=== PATIENT | female | born 1965 | race Caucasian/White ===

== ENCOUNTER 2021-08-12 11:32 | Outpatient (RCR) | payer OTHER, SELFPAY ==
[2021-08-12] MEDS: FAMOTIDINE 20 MG TABLET PO (15:52)
[2021-08-12] MEDS: diphenhydrAMINE HCl CAP 25 MG CAPSULE PO (15:52)
[2021-08-12] MEDS: ACETAMINOPHEN 325 MG TABLET 650 MG PO (15:52)
[2021-08-12 15:54] VITALS: BP 133/78; PULSE 82; RESP 20; TEMP 37.2; O2SAT 98
[2021-08-12 16:58] VITALS: BP 140/72
== END 2021-08-12 17:00 ==
LOC: AMCINF 11:32
PROVIDERS: PCP Nurse Practitioner Family; Visit Provider Internal Medicine Hematology & Oncology
DX: U07.1 COVID-19 (principal); I10 Essential (primary) hypertension
CPT/HCPCS: A9270; M0243; Q0244

== ENCOUNTER 2022-04-15 10:16 | Emergency (ER) | payer BC, SELFPAY ==
[2022-04-15 10:20] VITALS: BP 134/73; PULSE 64; RESP 18; TEMP 36.6; O2SAT 99
[2022-04-15 10:30] VITALS: PULSE 64; RESP 18; TEMP 36.6; O2SAT 99
--- NOTE | 2022-04-15 10:32 | ED.HA ---
HPI - Headache General Chief Complaint: Headache Stated Complaint: headache, nausea Time Seen by Provider: 04/15/22 10:35 Source: patient, RN notes reviewed and old records reviewed Mode of arrival: ambulatory Limitations: no limitations History of Present Illness HPI Narrative: 56 year old female who presents to [facility] care with complaints of headache behind her eyes and frontal region associated with some nausea no vomiting since yesterday at 0730. Patient reports no dizziness no ear discomfort denies any nasal congestion no cough no fever reports past history of migraines but has not been bothered by them for some time. Patient reports she has been taking Tylenol, and Aleve, with no improvement in her symptoms. Patient states she has been COVID vaccinated no booster and has not had flu shot. Patient reports that she did take a home COVID test which was negative. Patient reports that she is going thru menopause. MD elicited complaint: headache Pertinent past history: migraines and hypertension Onset (ago): day(s) (day 2 of symptoms) Time: 07:30 Pain scale (0-10): 8 Treatments prior to arrival: acetaminophen and other (Aleve) Related Data Home Medications Medication Instructions Recorded Confirmed amlodipine 10 mg tablet 10 mg PO DAILY 04/15/22 04/15/22 atorvastatin 40 mg tablet 40 mg PO DAILY 04/15/22 04/15/22 buspirone 10 mg tablet 10 mg PO DAILY 04/15/22 04/15/22 Allergies Allergy/AdvReac Type Severity Reaction Status Date / Time valsartan Allergy Mild SOB Verified 04/15/22 10:28 FERMIN Inhibitors Allergy Unknown nausea Verified 04/15/22 10:28 lisinopril Allergy Unknown SOB and Verified 04/15/22 10:28 weakness Review of Systems Review of Systems: CONSTITUTIONAL: Denies fever, chills, or sweats. EYES: Denies visual changes, redness, or discharge. ENT: Denies rhinorrhea, congestion, sore throat, or otalgia. CARDIOVASCULAR: Denies chest pain, palpitations, or edema. RESPIRATORY: Denies cough or dyspnea. GASTROINTESTINAL: Denies abdominal pain,positive for some nausea, no vomiting, or diarrhea. GENITOURINARY: Denies dysuria or hematuria. SKIN: Denies rash or itching. MUSCULOSKELETAL: Denies back pain, joint pain, or myalgia. NEUROLOGIC: Positive for headache,no numbness, or weakness. PSYCHIATRIC: Positive for anxiety or depression. All systems reviewed & are unremarkable except as noted in HPI and below PMFSH Past Medical History Medical History (Updated 04/17/22 @ 08:28 by Winnie Alvarado NP) Adenomatous colon polyp Constipation Family history of colon cancer GERD (gastroesophageal reflux disease) HLD (hyperlipidemia) HTN (hypertension) Surgical History Surgical History (Updated 04/17/22 @ 08:28 by Winnie Alvarado NP) Hx of cholecystectomy Family History Family History Sibling Diabetes mellitus Carcinoma of colon Mother Family history of coronary artery disease Sibling Family history of diabetes mellitus in first degree relative Carcinoma of colon Family history of heart disease in male family member before age 55 Patient's sister is in good health Father Family history of cardiovascular disease Family history of heart disease in male family member before age 55 Patient's father is in good health Mother Family history of lupus erythematosus Family history of heart disease in male family member before age 55 Patient's mother is in good health Grandparent Cerebrovascular accident Social History Social History Smoking status: Never smoker Second hand tobacco smoke exposure: No Alcohol intake: never Substance use: never Substance use type: does not use Gender identity (if verbalized by the patient): Female Sexual Orientation (if Verbalized by the Patient): Straight or Heterosexual Comments At time of signature, agree with nursing past medical, surgical, soci
[2022-04-15] MEDS: ONDANSETRON HCL ODT 4 MG TABLET SUBLINGUAL (10:57)
[2022-04-15] MEDS: KETOROLAC (*BKC) 60 MG/2 ML VIAL IM (10:57)
== END 2022-04-15 11:47 | disposition home or self-care (01) ==
PROVIDERS: Emergency Provider Registered Nurse; PCP Family Medicine
DX: G43.909 Migraine, unspecified, not intractable, without status migrainosus (principal); K21.9 Gastro-esophageal reflux disease without esophagitis; E78.5 Hyperlipidemia, unspecified; I10 Essential (primary) hypertension
CPT/HCPCS: 96372; 99213; A9270; G0463; J1885

== ENCOUNTER 2022-12-02 08:04 | Emergency (ER) | payer BC, SELFPAY ==
--- NOTE | 2022-12-02 08:09 | ED.URI ---
HPI - URI/Sore Throat General Chief Complaint: Upper Respiratory Infection Stated Complaint: Sore Throat/Congestion Time Seen by Provider: 12/02/22 08:09 Source: patient and RN notes reviewed History of Present Illness HPI Narrative: Patient is a 56-year-old female who presents to urgent care with complaints of sore throat, congestion and cough since Thursday. Patient states that she had a low-grade fever once and took Aleve. Patient is not taking anything [id number] for her symptoms. Denies any ill exposures, nausea or vomiting. Denies any shortness of breath. No other acute complaints. No acute distress noted. Patient aware of the plan of care. Some parts of this dictation were generated by voice recognition software and may contain typographical and/or grammatical inaccuracies. Related Data Home Medications Medication Instructions Recorded Confirmed atorvastatin 40 mg tablet 40 mg PO DAILY 04/15/22 12/02/22 Allergies Allergy/AdvReac Type Severity Reaction Status Date / Time valsartan Allergy Mild SOB Verified 12/02/22 08:23 FERMIN Inhibitors Allergy Unknown nausea Verified 12/02/22 08:23 lisinopril Allergy Unknown SOB and Verified 12/02/22 08:23 weakness Review of Systems Review of Systems: CONSTITUTIONAL: Denies fever, chills, or sweats. EYES: Denies visual changes, redness, or discharge. ENT: Reports nasal congestion, rhinorrhea and postnasal drainage with sore throat CARDIOVASCULAR: Denies chest pain, palpitations, or edema. RESPIRATORY: Reports of cough without dyspnea GASTROINTESTINAL: Denies abdominal pain, nausea, vomiting, or diarrhea. GENITOURINARY: Denies dysuria or hematuria. SKIN: Denies rash or itching. MUSCULOSKELETAL: Denies back pain, joint pain, or myalgia. NEUROLOGIC: Denies headache, numbness, or weakness. All other systems reviewed are negative, except as documented in HPI. [facility] Past Medical History Medical History Adenomatous colon polyp Constipation Family history of colon cancer GERD (gastroesophageal reflux disease) HLD (hyperlipidemia) HTN (hypertension) Surgical History Surgical History Hx of cholecystectomy Family History Family History Sibling Diabetes mellitus Carcinoma of colon Mother Family history of coronary artery disease Sibling Family history of diabetes mellitus in first degree relative Carcinoma of colon Family history of heart disease in male family member before age 55 Patient's sister is in good health Father Family history of cardiovascular disease Family history of heart disease in male family member before age 55 Patient's father is in good health Mother Family history of lupus erythematosus Family history of heart disease in male family member before age 55 Patient's mother is in good health Grandparent Cerebrovascular accident Social History Social History Smoking status: Never smoker Second hand tobacco smoke exposure: No Alcohol intake: never Substance use: never Substance use type: does not use Living arrangements: with family Occupation/Education: occupation Gender identity (if verbalized by the patient): Female Sexual Orientation (if Verbalized by the Patient): Straight or Heterosexual Comments At the time of my signature, I reviewed and agree with the nursing past medical, surgical, social, and family history. There is no relevant family history pertinent to the patient complaint. Exam Narrative: GENERAL: This is a well-nourished, well-developed patient, in no apparent distress. HEAD: normocephalic, atraumatic. EYES: PERRL. Sclera clear/white. Vision is grossly intact. EARS: External ears normal, auditory canals clear and without drainage, TMs normal without perfora
[2022-12-02 08:14] VITALS: BP 125/80; PULSE 77; RESP 16; TEMP 36.9; O2SAT 99
== END 2022-12-02 08:40 | disposition home or self-care (01) ==
PROVIDERS: Emergency Provider Nurse Practitioner Family; PCP Family Medicine
DX: J02.9 Acute pharyngitis, unspecified (principal); K21.9 Gastro-esophageal reflux disease without esophagitis; E78.5 Hyperlipidemia, unspecified; I10 Essential (primary) hypertension
CPT/HCPCS: 87081; 87880; 99213; G0463

== ENCOUNTER → 2023-01-13 15:01 | Outpatient (CLI) | payer BC, SELFPAY ==
--- NOTE | ~2023-01-13 | XR_ITS ---
XR hand BI arthritis min 3V DATE: 01/13/2023 15:53 INDICATION: Bilateral hand pain TECHNIQUE: 4 views of each hand COMPARISON: None FINDINGS: There is polyarticular osteophytosis, involving the first carpometacarpal joints and distal interphalangeal joints primarily. No fracture or dislocation, periosteal reaction or bone destruction is detected. No erosive change or chondrocalcinosis. IMPRESSION: Polyarticular osteoarthritis involving primarily the first carpometacarpal and distal int erphalangeal joints Reviewed, dictated and finalized at location L. IMPRESSION: Polyarticular osteoarthritis involving primarily the first carpomet acarpal and distal interphalangeal joints
--- NOTE | ~2023-01-13 | XR_ITS ---
XR_KNEE1-2VRT_CR DATE: 01/13/2023 15:53 INDICATION: Right knee pain TECHNIQUE: Standing AP and lateral views COMPARISON: None FINDINGS: There is minimal periarticular spurring of the patella. There is moderate loss of medial compartment joint space height and mild periarticular spurring of th e medial femoral condyle. No fracture or dislocation or joint effusion. No radiopaque intra-articular loose body or l chondroca lcinosis. No periosteal reaction or bone destruction. IMPRESSION: Mild medial compartment and slight patellofemoral osteoarthritis Reviewed, dictated and finalized at [facility]. Reviewed, dictated and finalized at location [facility].
--- NOTE | ~2023-01-13 | XR_ITS ---
XR_[id number]_CR DATE: 01/13/2023 15:53 INDICATION: Left knee pain TECHNIQUE: Standing AP and lateral views COMPARISON: None FINDINGS: There is minimal particular spurring of the patella. There is moderately prominent loss of medial joint space height with mild periarticular spurring, primarily of the medial femoral condyle. No fracture or dislocation, radiopaque intra-articular loose body or, calcinosis is noted. No periost eal reaction or bone destruction. Assessment of joint effusion is somewhat limited due to obliquity of the lateral view. IMPRESSION: Moderate medial compartment and minimal patellofemoral compartment osteoarthritis Reviewed, dictated and finalized at [facility]. Reviewed, dictated and finalized at location L.
== END ==
PROVIDERS: PCP Family Medicine; Visit Provider Family Medicine
DX: M19.042 Primary osteoarthritis, left hand (principal); M19.041 Primary osteoarthritis, right hand; M19.072 Primary osteoarthritis, left ankle and foot; M19.071 Primary osteoarthritis, right ankle and foot
CPT/HCPCS: 73130; 73560

== ENCOUNTER 2023-10-15 00:38 | Day surgery (SDC) | payer BC, SELFPAY ==
[2023-09-17 10:01] VITALS: BMI 46.4
--- NOTE | 2023-10-13 10:35 | SUR.PREOP ---
Patient called regarding upcoming procedure. Unable to leave a message.
[2023-10-15 13:14] VITALS: BP 136/88; PULSE 87; RESP 20; TEMP 36.7; O2SAT 98; BMI 46.6
--- NOTE | 2023-10-15 13:16 | WPDANESEPPF ---
Anes - Initial Pre Proc Eval Procedure: Operation Date: 10/15/23 14:30 Proposed Procedures p Esophagogastroduodenoscopy & Screening Colonoscopy - Micheal Garcia MD Date/Time: 10/15/23 13:16 Surgeon: Micheal Gracia MD Pre Op Diagnosis: GERD,LLQpain,Neoplasm screening, Fam Hx cancer GI Patient Data Age: 57 Gender: F Height: 1.6 m Weight: 119 kg Allergies Allergy/AdvReac Type Severity Reaction Status Date / Time valsartan AdvReac Mild SOB Verified 10/15/23 13:13 FERMIN Inhibitors AdvReac Unknown nausea Verified 10/15/23 13:13 lisinopril AdvReac Unknown SOB and Verified 10/15/23 13:13 weakness Home Medications Medication Instructions Recorded Confirmed Type fluticasone propionate 50 2 spray intranasal DAILY #15.8 mL 12/02/22 09/17/23 Rx mcg/actuation nasal spray,suspension (Flonase Allergy Relief) amlodipine 10 mg tablet 10 mg PO DAILY #90 tabs 05/05/23 09/17/23 Rx benazepril 40 mg tablet 40 mg PO DAILY #90 tabs 05/05/23 09/17/23 Rx aspirin 81 mg capsule 81 mg DAILY 09/17/23 09/17/23 History buspirone 10 mg tablet 10 mg PO TID 09/17/23 09/17/23 History Patient hx anesthesia problems: none Family hx anesthesia problems: none Results Review: All pre-operative results and documents have been reviewed as part of the pre-operative evaluation. [facility] Past Medical History Medical History Adenomatous colon polyp Constipation Family history of colon cancer GERD (gastroesophageal reflux disease) HLD (hyperlipidemia) HTN (hypertension) Surgical History Surgical History Hx of cholecystectomy Family History Family History Sibling Diabetes mellitus Carcinoma of colon Mother Family history of coronary artery disease Sibling Family history of diabetes mellitus in first degree relative Carcinoma of colon Family history of heart disease in male family member before age 55 Patient's sister is in good health Father Family history of cardiovascular disease Family history of heart disease in male family member before age 55 Patient's father is in good health Mother Family history of lupus erythematosus Family history of heart disease in male family member before age 55 Patient's mother is in good health Grandparent Cerebrovascular accident Social History Social History Smoking status: Never smoker Second hand tobacco smoke exposure: No Alcohol intake: never Substance use: never Substance use type: does not use Living arrangements: with family Occupation/Education: occupation Gender identity (if verbalized by the patient): Female Sexual Orientation (if Verbalized by the Patient): Straight or Heterosexual Spiritual care concerns: No Anes - Eval Final PreProcedure Day of Procedure 10/15/23 13:16 Patient weight: morbidly obese Heart: regular rate and rhythm Lungs: clear to auscultation Airway: Mallampati scale class III Neurological: alert and oriented Last oral intake: >/= 8 hours ASA classification: III Emergent: no Anesthetic plan: proceed Anesthesia type and monitoring: general GIVS and standard monitoring Results Review: All pre-operative results and documents have been reviewed as part of the pre-operative evaluation. Informed Consent: The patient's anesthetic plan and its attendant risks and benefits were discussed with the patient/family/POA. Questions were solicited and answers provided to the satisfaction of the patient/family/POA.
[2023-10-15] MEDS: LACTATED RINGERS 1,000 ML 150 ML IV CONT (13:22)
--- NOTE | 2023-10-15 13:24 | PM.HPGS ---
History of Present Illness History of Present Illness Consent: Risks, benefits, and alternatives have been discussed and questions answered. Patient agrees to proceed with procedure. Chief complaint: GERD,LLQpain,Neoplasm screening, Fam Hx cancer GI Narrative: Elizabeth Sams is a 57 year old female with gerd on pepcid, also luq pain. Last colonoscopy 6 years ago and had polyps, sister with colon cancer. Review of Systems Constitutional: Constitutional: Denies headache(s) and Denies weakness Eyes: Eyes: Denies blurry vision ENT: Reports Normal hearing present, Denies headache(s) and Denies neck pain Cardiovascular: Cardiovascular: Denies chest pain and Denies dyspnea Respiratory: Respiratory: Denies dyspnea Gastrointestinal: Gastrointestinal: Reports no additional gastrointestinal complaints Genitourinary: Genitourinary: Denies dysuria Musculoskeletal: Musculoskeletal: Denies neck pain Integumentary/Breasts: Skin/Breast: Denies dry skin Neurologic: Reports Normal hearing present, Denies headache(s) and Denies weakness Psychiatric: Psychiatric: Denies anxiety Endocrine: Endocrine: Denies change in body appearance Hematologic/Lymphatic: Hematologic/Lymphatic: Denies easy bleeding Allergic/Immunologic: Allergic/Immunologic: Denies urticaria PMFSH Past Medical History Medical History Adenomatous colon polyp Constipation Family history of colon cancer GERD (gastroesophageal reflux disease) HLD (hyperlipidemia) HTN (hypertension) Surgical History Surgical History Hx of cholecystectomy Family History Family History Sibling Diabetes mellitus Carcinoma of colon Mother Family history of coronary artery disease Sibling Family history of diabetes mellitus in first degree relative Carcinoma of colon Family history of heart disease in male family member before age 55 Patient's sister is in good health Father Family history of cardiovascular disease Family history of heart disease in male family member before age 55 Patient's father is in good health Mother Family history of lupus erythematosus Family history of heart disease in male family member before age 55 Patient's mother is in good health Grandparent Cerebrovascular accident Social History Social History Smoking status: Never smoker Second hand tobacco smoke exposure: No Alcohol intake: never Substance use: never Substance use type: does not use Living arrangements: with family Occupation/Education: occupation Gender identity (if verbalized by the patient): Female Sexual Orientation (if Verbalized by the Patient): Straight or Heterosexual Spiritual care concerns: No Meds Home Medications and Allergies Home Medications Medication Instructions Recorded Confirmed Type fluticasone propionate 50 2 spray intranasal DAILY #15.8 mL 12/02/22 09/17/23 Rx mcg/actuation nasal spray,suspension (Flonase Allergy Relief) amlodipine 10 mg tablet 10 mg PO DAILY #90 tabs 05/05/23 09/17/23 Rx benazepril 40 mg tablet 40 mg PO DAILY #90 tabs 05/05/23 09/17/23 Rx aspirin 81 mg capsule 81 mg DAILY 09/17/23 09/17/23 History buspirone 10 mg tablet 10 mg PO TID 09/17/23 09/17/23 History Allergies Allergy/AdvReac Type Severity Reaction Status Date / Time valsartan AdvReac Mild SOB Verified 10/15/23 13:13 FERMIN Inhibitors AdvReac Unknown nausea Verified 10/15/23 13:13 lisinopril AdvReac Unknown SOB and Verified 10/15/23 13:13 weakness Vital Signs Vital Signs - 24 hr 10/15/23 13:14 Temperature 98.1 F Pulse Rate 87 Respiratory Rate 20 Blood Pressure 136/88 Pulse Oximetry 98 Oxygen Delivery Room Air Exam Const: General: comfortable and no acute distress HENMT: Face/Nose/Sinus: Nor
--- NOTE | 2023-10-15 13:43 | SUR.OPER ---
EGD START: 1333; END: 1336. COLONOSCOPY START: 1341; END: 1349.
[2023-10-15 13:54] VITALS: BP 114/78; PULSE 77; RESP 19; O2SAT 98
[2023-10-15 14:04] VITALS: BP 122/82; PULSE 74; RESP 24; O2SAT 100
[2023-10-15 14:14] VITALS: BP 115/75; PULSE 65; RESP 18; O2SAT 100
== END 2023-10-15 14:22 | disposition home or self-care (01) ==
PROVIDERS: PCP Family Medicine; Visit Provider Internal Medicine Gastroenterology
PROC: 0DJ08ZZ Inspection of Upper Intestinal Tract, Via Natural or Artificial Opening Endoscopic (ICD-10-PCS; CPT 43235; principal; 2023-10-15 14:30)
DX: Z12.11 Encounter for screening for malignant neoplasm of colon (principal); K64.8 Other hemorrhoids; K57.30 Diverticulosis of large intestine without perforation or abscess without bleeding; K44.9 Diaphragmatic hernia without obstruction or gangrene; K29.80 Duodenitis without bleeding; I10 Essential (primary) hypertension; E78.5 Hyperlipidemia, unspecified; K21.9 Gastro-esophageal reflux disease without esophagitis; E66.01 Morbid (severe) obesity due to excess calories; Z68.42 Body mass index [BMI] 45.0-49.9, adult; Z79.82 Long term (current) use of aspirin; Z90.49 Acquired absence of other specified parts of digestive tract; Z86.010 Personal history of colon polyps; Z80.0 Family history of malignant neoplasm of digestive organs; Z82.49 Family history of ischemic heart disease and other diseases of the circulatory system
CPT/HCPCS: 43239; 45378; 88305; J2001; J2704; J7120

== ENCOUNTER 2024-07-14 11:09 | Outpatient (CLI) | payer BC, SELFPAY ==
--- NOTE | ~2024-07-14 | XR_ITS ---
Clinical Indication: Cough PA and lateral views of the chest: Comparison: 05/21/2007 Findings: The lungs are clear, without evidence of focal consolidation or pleural effusion. Cardiome diastinal silhouette is within normal limits. Bones and soft tissues are unremarkable. Impression: Normal chest. Reviewed, dictated and finalized at [facility]. E BUILDER Impression: Normal chest.
== END 2024-07-14 11:10 | disposition home or self-care (01) ==
PROVIDERS: PCP Family Medicine; Visit Provider Physician Assistant Medical
DX: R05.9 Cough, unspecified (principal); R09.89 Other specified symptoms and signs involving the circulatory and respiratory systems
CPT/HCPCS: 71046

== ENCOUNTER 2024-11-23 09:54 | Outpatient (CLI) | payer OTHER, SELFPAY ==
--- NOTE | ~2024-11-23 | CT_ITS ---
CT of the Abdomen: Indication: Left upper quadrant Technique: 2.5 mm axial scans were obtained through the abdomen following intravenous administration of 100 cc of Omnipaque 350. Dose reduction technique was used on this scan by utilizing automated ex posure control and iterative reconstruction technique. The dose-length product (DLP) was 755.58 mGy-c m. Findings: Scans through the lung bases are unremarkable. The liver, spleen, pancreas, and adrenal glands are within normal limits. Cholecystectomy clips are p resent. 6 mm nonobstructing right renal stone present. 5 mm nonobstructing left renal stone present. No evidence of aortic aneurysm. No lymphadenopathy. Visualized bowel loops are unremarkable.. No ascites. Impression: Bilateral nonobstructing renal stones, as above. Reviewed, dictated and finalized at location M. Impression: Bilateral nonobstructing renal stones, as above.
[2024-11-23 10:13] LABS: Estimated Glomerular Filt Rate 57
== END 2024-11-23 09:55 | disposition home or self-care (01) ==
PROVIDERS: PCP Family Medicine; Visit Provider Physician Assistant Medical
DX: N20.0 Calculus of kidney (principal)
CPT/HCPCS: 74160; Q9967

== ENCOUNTER 2025-06-22 16:41 | Outpatient (CLI) | payer OTHER, SELFPAY ==
--- OUTSIDE RECORDS SUMMARY | 2023-05-21 06:47 | XMS_ITS | Encounter Summary ---
Author Organization [facility] Healthcare Address [address] [place] [address] Care Team Providers Care Primary Teacher Name Role Phone Durga Tomlinson MD Primary Care Provider Reason for Visit * Diagnostic Imaging (Routine) - Closed Specialty Diagnoses / Procedures Referred By Sachin glass Referred To Contact Diagnoses Left knee pain, unspecified chronicity Procedures XR Knee Left 1 or 2 Views Toro Talamantes NP [address] [place] [address] [address] [place] [address] Phone: tel: fax: Referral ID Status Reason Start Date Expiration Date Visits Re quested Visits Authorized [id number] Closed 05/21/2023 06/19/2024 1 1 Encounter Details Date Type Department Care Team (Late st Contact Info) Description 05/21/2023 7:47 AM CDT Hospital Encounter [facility] Orth[facility] Medicine [address] [place] [address] [address] [id number] Social History Tobacco Use Types Packs/Day Years Used Date Smoking Tobacco: Never Smokeless Tobacco: Never PHQ-2 Answer Date Recorded PHQ-2 Total Score (If total score is 3 or more points, staff should administer the PHQ-9) 0 11/19/2023 Personal Safety Answer Date Recorded Have you ever been in or are you currently in a harmful physical or emotional relationship or is someone making you feel afraid or unsafe? 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 Has the patient self-reported, presented with clinical signs of, or have a documented history of any of the following within the past 30 days? No 06/17/2024 10:02 AM Alexandria Brian RN * Question Answer Date of Assessment Author Is the patient being treated today because it is known or suspected that they prepared, started, or tried to end their life? No 06/17/2024 10:02 AM Alexandria Brian RN * Question Answer Date of Assessment Author 1. In the past month, have y ou wished you were or that you could go to sleep and not wake up? No 06/17/2024 10:02 AM Alexandria Brian RN 2. In the past month, have y ou actually had any thoughts of killing yourself? No 06/17/2024 10:02 AM Alexandria Brian RN 6. Have you ever done anything, started to do anything, or prepared to do anything to end your life? No 06/17/2024 10:02 AM Alexandria Brian RN * Suicide Risk Level Answer Date of Assessment Author No risk level 06/17/2024 10:02 AM Alexandria Brian RN * Self-Injurious Risk Level Answer Date of Assessment Author No risk level 06/17/2024 10:02 AM Alexandria Brian RN * Fall Risk Assessment Tool - MEDFRAT Question Answer Date of Assessment Author Prior Fall Event (Autopopulated from EMR) None found 06/17/2024 10:02 AM Alexandria Brian RN History of falling in last 3 months, including since admission 0 06/17/2024 10:02 AM Alexandria Brian RN Confusion or disorientation 0 06/17/2024 10:02 AM Alexandria Brian RN Intoxicated or sedated 0 4 10:02 AM Alexandria Brian RN Impaired gait 0 06/17/2024 10:02 AM Alexandria Brian RN Mobility assist device used 0 06/17/2024 10:02 AM Alexandria Brian RN Altered elimination 0 06/17/2024 1 0:02 AM Alexandria Brian RN Fall risk score: (1-2 low risk), (3-4 moderate risk), (5 or more high risk) 0 06/17/2024 10:02 AM Alexandria Brian RN Interventions - GENERAL USE as needed patient/family education 06/17/2024 10:02 AM Alexandria Brian RN * BP Location Answer Date of Assessment Author Right arm 09/06/2024 8:41 AM Estee Lind MA documented as of this encounter Mental Status * Question Answer Entry Date Author Neuro (WDL) WDL 06/17/2024 11:47 AM Christy Alfred RN documented in this encounter Plan of Treatment Not on file documented as of this encounter Procedures Procedure Name Priority Date/Time Associated Diagnosis Comments XR KNEE LEFT 1 OR 2 VIEWS Schedule Routine, Read Routine (OP Routine) 05/21/2023 12:55 PM CDT Left knee pain, unspecified chronicity documented in this encounter Results * XR Knee Left 1 or 2 Views (05/21/2023 12:55 PM CDT) Anatomical Region Laterality Modality Lower Extremities, Knee Left Digital Radiography Narrative 05/21/2023 12:55 PM CDT Weightbearing views of the left knee are reviewed and demonstrate no acute fractures or osseous changes. Mild to moderate medial and patellofemoral degenerative changes present with joint space narrowing, osteophyte formation, and subchondral sclerosis Toro Talamantes INSURANCE ADVISOR IMG XR PROCEDURES Final Result documented in this encounter Visit Diagnoses Not on filedocumented in this encounter Care Teams Primary Teacher Relationship Specialty Start Date End Date Durga Tomlinson MD [address] [facility] [address] [place] [address] PCP - General Family Medicine 04/29/21 11/18/23 documented as of this encounter
--- OUTSIDE RECORDS SUMMARY | 2025-06-22 16:43 | XMS_ITS | Clinical Summary ---
Author Organization [facility] Address [address] [place] [address] Care Team Providers Care Hide And Skin Colerer Name Role Phone Durga Tomlinson MD Primary Care Provider Allergies Active Allergy Reactions Criticality Noted Date Comments Omer Inhibitors Nausea only Low 04/29/2021 Lisinopril Shortness of breath High 04/29/2021 Prednisone Palpitations Low 04/29/2021 Valsartan Shortness of breath High 04/29/2021 Medications amLODIPine (NORVASC) 10 mg tablet Take 1 tablet (10 mg total) by mouth daily 04/16/2021 Active busPIRone (BUSPAR) 10 mg tabletIndication s:Generalized Anxiety Disorder Take 1 tablet (10 mg total) by mouth daily Active benazepriL (LOTENSIN) 40 mg tablet Take 1 tablet (40 mg total) by mouth daily Active aspirin 81 mg enteric coated tablet Take 1 tablet (81 mg total) by mouth daily Active benzonatate (TESSALON) 200 mg capsuleIndicatio ns:Lower respiratory infection Take 1 capsule (200 mg total) by mouth 3 (three) times a day as needed for cough 42 capsule 06/30/2024 Active atorvastatin (LIPITOR) 20 mg tablet Take 1 tablet (20 mg total) by mouth daily 90 tablet 3 09/06/2024 09/06/19 26 Active Active Problems Problem Noted Date Diagnosed Date Arthralgia 11/23/2023 Assessment & Plan (11/23/2023 7:46 PM CDT): Multiple arthralgias and joint aches. Also has joint swelling. Will recheck labs. Refer to rheumatology. Mixed hyperlipidemia 11/23/2023 Assessment & Plan (11/23/2023 7:46 PM CDT): Was taken off statin. Will recheck lipid panel. Continue to monitor Myalgia, multiple sites 11/23/2023 Anxiety 11/23/2023 Assessment & Plan (11/23/2023 7:48 PM CDT): Continue buspar. Has stopped sertraline. Feels irritability improved with stopping it, but depression has worsened. Will monitor and discuss if we need to replace it at next office visit Angina pectoris 03/27/2022 Overview (05/07/2022): Possibly due to stress and anxiety. No ischemia on Cardiolite 09 Dec 2016. Fixed anteroseptal defect on Cardiolite 17 May 2021. Normal LVEF on echo 22 November 2021. Normal cardiac catheterization on 04 April 2022 (RG). Assessment & Plan (09/06/2024 8:57 AM ELECTRICAL AND INSTRUMENTATION MECHANIC): We discussed cardiac catheterization result from 2-1/2 years ago. She has not really had any chest pain or shortness of breath with activities. She does have problems with the hip when walking. I advised her to cut back on the calorie intake and to do water exercises as she has been gaining some weight lately. Weight gain would not be good for the hip. Assessment & Plan (11/27/2022 3:05 PM CDT): She had some chest pressure 8 months ago leading to a normal cardiac catheterization. No more exertional chest pressure. Assessment & Plan (03/27/2022 2:35 PM CDT): Patient is still having mid chest pressure with/without exertion. She thinks it is getting more frequent and more severe. We discussed as he is already being treated for CAD with amlodipine, aspirin, metoprolol tartrate and atorvastatin. It might be best to find out for sure whether she has real CAD versus anxieties/stress. I recommended the gold standard which is a heart catheterization. She is agreeable. She would like to miss only 1 day, so we could try to schedule this for next week Thursday. Elevated LDL cholesterol level 03/27/2022 Overview (09/06/2024): LDL of 83 mg/dL on 09 Dec 2016. LDL of 135 mg/dL on 04 Jan 2021. LDL of 125 mg/dL on 11 October 2022. LDL of 83 mg/dL on 22 November 2022. LDL of 113 mg/dL on 20 November 2023. She was on Lipitor 40 mg p.o. q.d., but not on any anti lipid agent now. Assessment & Plan (09/06/2024 8:57 AM ELECTRICAL AND INSTRUMENTATION MECHANIC): We discussed LDL cholesterol goal of less than 100 mg/dL. I showed her that she was at goal when taking Lipitor. Apparently had some issues with Lipitor 40 mg in the past--she thought it might be her anxiety. We decided to compromise and I will have her take 20 mg of Lipitor daily. Another fasting lipid/liver panel in 2 months. Assessment & Plan (11/27/2022 3:04 PM CDT): Patient thinks that she has palpitations from the Lipitor. However, she has a very anxious lady and has had palpitations the past. 2 cardiac monitors, 2017 and 2018, did not show anything significant when she had palpitations. She will let me know if she needs another monitor and storage bin tender. At this time, she does not want a monitor. She will call me back in 2 weeks once symptoms are completely cleared, for possibly restarting Pravachol 20 mg p.o. q.p.m. to get the LDL closer to 100 mg/dL. Assessment & Plan (03/27/2022 2:35 PM CDT): Discussed LDL cholesterol goal of at least less than 100 mg/dL. Apparently never got a lipid panel after Lipitor was started last year. Patient agreeable to getting a lipid/liver panel now. Essential hypertension 04/29/2021 Assessment & Plan (11/23/2023 7:41 PM CDT): Stable/ Improved. Blood pressure is adequately controlled on benazepril (Lotensin) and amlodipine . We will not make any medication changes today. Will have her follow-up in 6 months for continued monitoring and management Morbid obesity with body mas s index (BMI) of 45.0 to 49.9 in adult Assessment & Plan (11/23/2023 7:42 PM CDT): BMI Follow-up includes: exercise counseling. Immunizations Immunization Administration Dates Next Due Influenza, Unspecified 08/10/2023(Deferr ed: Patient Refused),08/10/2022(Deferred: Patient Refused) Surgical History Surgery Date Site/Laterality Comments CHOLECYSTECTOMY TUBAL LIGATION Medical History Medical History Date Comments Constipation LUCIUS (generalized anxiety disorder) Major depressive disorder Depression Esophageal reflux Chronic kidney disease Family History Medical History Relation Name Comments Heart disease Father Coronary artery disease Mother Heart attack Mother Lupus Mother Stroke Mother Diabetes Sister 1 Colon cancer Sister 3 Relation Name Status Comments Father (Age 80) Mother Alive Sister 1 Alive Sister 2 Alive Sister 3 Alive Social History Tobacco Use Types Packs/Day Years Used Date Smoking Tobacco: Never Smokeless Tobacco: Never Tobacco Cessation:Counseling Given: Not Answered PHQ-2 Answer Date Recorded PHQ-2 Total Score [...] on file Legal Sex Female 11:59 PM ELECTRICAL AND INSTRUMENTATION MECHANIC Gender Identity Not on file Sexual Orientation Not on file Last Filed Vital Signs Vital Sign Reading Time Taken Comments Blood Pressure 138/89 09/06/2024 8:41 AM ELECTRICAL AND INSTRUMENTATION MECHANIC Pulse 87 09/06/2024 8:41 AM ELECTRICAL AND INSTRUMENTATION MECHANIC Temperature 36.8 C (98.2 F) 06/30/2024 11:36 AM ELECTRICAL AND INSTRUMENTATION MECHANIC Respiratory Rate 16 09/06/2024 8:41 AM ELECTRICAL AND INSTRUMENTATION MECHANIC Oxygen Saturation 97% 06/30/2024 11: 36 AM ELECTRICAL AND INSTRUMENTATION MECHANIC Inhaled Oxygen Concentration - - Weight 121.7 kg (268 lb 3.2 oz) 09/06/2024 8:41 AM ELECTRICAL AND INSTRUMENTATION MECHANIC Height 160 cm (5' 3) 09/06/2024 8:41 AM ELECTRICAL AND INSTRUMENTATION MECHANIC Body Mass Index 47.51 09/06/2024 8:41 AM ELECTRICAL AND INSTRUMENTATION MECHANIC Plan of Treatment Health Maintenance Due Date Last Done Comments Breast Cancer Screening-Mammogram 1965 Cervical Cancer Screening 1965 DTaP/Tdap/Td Vaccine (1 - Tdap) 12/23/1978 Hepatitis B Screening 12/23/1985 Regular Well Visit/Exam 18-64 12/23/1985 Pneumococcal vaccine <65 (1 of 2 - PCV) 12/23/1986 Zoster Vaccine (1 of 2) 12/23/2017 Depression Screening 11/18/2024 11/19/2023 Covid-19 Vaccine (2 - season) 04/10/202512/2020 Influenza Vaccine (#1) 2025 Colon Cancer Screening-Colonoscopy 12/12/20252015 Hepatitis C Screening Completed 11/20/2023 Medical Devices Implanted Type Area Virtualization Engineer Device Identifier Shelf Expiration Date Model / Serial / Lot [employer] Angio-Seal Vip 6fr Closere Device [id number] - [id number] Implanted:Qty: 1 on 04/04/2022 by Amanda Milligan MD at [facility] Other - see comments [employer] 02/06/2023 [id number] / / [id number] Procedures Procedure Name Priority Date/Time Associated Diagnosis Comments HEPATITIS C ANTIBODY Routine 11/20/2023 9:31 AM CDT COLONOSCOPY 12/13/2015 12:00 AM CDT from Last 3 Months or Most Recently Relevant to Health Maintenance Results * Hepatitis C antibody (11/20/2023 9:31 AM CDT) Hep C Ab NON-REACTI VE NON-REACT ROGER [facility] Comment: HCV antibody was non-reactive. There is no laboratory evidence of HCV infection. In most cases, no further action is required. However, if recent HCV exposure is suspected, a test for HCV RNA (test code 73190) is suggested. For additional information please refer to http://education.[employer]/faq/ZJH17s4 (This link is being provided for informational/ educational purposes only.) 11/20/2023 9:31 AM CDT 11/20/2023 9:40 AM CDT Narrative [facility] - 11/23/2023 4:26 PM CDT FASTING:YES FASTING: YES Tegan Bird NP LAB MICROBIOLOGY - GENERAL OR DERABLES Final Result [facility] [address] [place] [address] * COLONOSCOPY (12/13/2015 12:00 AM CDT) Anatomical Region Laterality Modality Other Narrative 12/13/2015 12:00 AM CDT Ordered by an unspecified provider. Procedure Note Provider, MD Fernanda - 12/13/2015 12:00 AM CDT PROCEDURE REPORT Patient: CARLOS ENRIQUE SAMS Account: [id number] Room No: : 1965 Patient Type: [facility] Attend.: Naveed Trejo M.D. Admit Date: 12/13/2015 Dict.: Naveed Trejo M.D. Disch. Date: 12/13/2015 Patient seen on 12/13/2015. REFERRED BY: Dr. Michele Sorto. PREVIOUS PROCEDURE: Colonoscopy with polyps removed. X-RAYS: None. HISTORY AND PHYSICAL EXAMINATION: The patient is a 49-year-old whitefemale with history of colonic polyps as well as family history of colorectalcancer. She returns now for repeat screening colonoscopy. Please note she hasno current complaints. Physical examination is that of a well-developed, well-nourished, whitefemale in no acute distress. She is nonicteric. Her lungs were clear. Herheart was regular. GI was soft and supple. Extremities showed no calf pain, cordsor edema. PREPROCEDURE DIAGNOSES: 1. Screening colonoscopy in a 49-year-old female. 2. History of colonic polyps. 3. Strong family history of colorectal cancer. PHYSICIAN: Dr. Trejo. INSTRUMENT USED: Olympus video endoscope. MEDICATIONS: Per anesthesia. FINDINGS: The colonoscope was introduced into the rectum, left lateral position and passed to the cecum. The patient tolerated the procedurewell. There were no complications. On withdrawal of the colonoscope, themucosa appeared normal with the normal vascular pattern. No polyps and no masseswere noted in the cecum, right, transverse, left, rectal sigmoid or rectum. Inthe rectum there was a small minute polypoid area that did not appearneoplastic in any way. It was simply picked up, cauterized and destroyed. Retroflexview of the internal anal area showed small to moderate internal hemorrhoidaltissue with several hemorrhoidal tags. Perianal exam showed no perianal diseaseand no rectal masses. COMPLICATIONS: None. POSTPROCEDURE DIAGNOSES: 1. Normal screening colonoscopy to cecum with a withdrawal time of 8minutes and 58 seconds. Preparation good. 2. History of colonic polyps. 3. Strong family history of colorectal cancer. POSTPROCEDURE ORDERS: 1. Postsedation instructions. 2. High fiber diet. 3. Repeat colon in 5 years. 4. Follow up with Dr. Michele Sorto. 5. *-*-* 6. 7. 1. Electronically Authenticated by: Naveed Trejo MD On 12/17/2015 05:32 AM CDT 1. 2. *-*-* 3. 4. 1. Naveed Trejo M.D. MA/elfego TD: 12/17/2015 02:10 CC: Dr. Michele Sorto us Historical Provider ENDOSCOPY PROCEDURES Holli l Result from Last 3 Months or Most Recently Relevant to Health Maintenance Insurance [employer] [facility] OPEN ACCESS Advance Directives For more information, please contact: [phone] * Full Code (Latest Code Status on File) Date Activated Date Inactivated Comments 04/04/2022 1:21 PM 04/07/2022 11:19 AM Care Teams Hide And Skin Colerer Relationship Specialty Start Date End Date Durga Tomlinson MD [address] [facility] [address] [place] [address] PCP - General Family Medicine 06/17/24
[2025-06-22 17:40] LABS: SARS-CoV-2 RNA PCR Negative (Negative)
== END 2025-06-22 16:42 | disposition home or self-care (01) ==
LOC: ANHLAB 16:42
PROVIDERS: PCP Family Medicine; Visit Provider Physician Assistant Medical
DX: R59.1 Generalized enlarged lymph nodes (principal); R53.83 Other fatigue; Z20.822 Contact with and (suspected) exposure to COVID-19
CPT/HCPCS: 87635